=== PATIENT | male | born 1940 | race Caucasian/White ===

== ENCOUNTER 2016-09-13 14:16 | Inpatient (IN) | payer MEDICARE ==
[~2016-09-13] VITALS: Ht 180.3 cm; Wt 95.7 kg
[2016-09-13] MEDS ORDERED: SODIUM CHLORIDE 0.9% 1,000ML IVBOLUS ONE (15:00)
[2016-09-13 15:17] LABS: ASPARTATE AMINO TRANSFERASE 13 U/L (15-37); BLOOD UREA NITROGEN 23 mg/dL (7-18)
[2016-09-13 15:21] LABS: IS PT STATUS REG ER OR PRE ER? YES
[2016-09-13] MEDS ORDERED: SIMV20TA3 PO (17:43)
[2016-09-13] MEDS ORDERED: UBID200C4 PO (17:43)
[2016-09-13] MEDS ORDERED: LISI5TAB7 PO (17:43)
[2016-09-13] MEDS ORDERED: LIRA0.6P SQ (17:43)
[2016-09-13] MEDS ORDERED: CHOL20003 PO (17:43)
[2016-09-13] MEDS ORDERED: DAPA1TAB3 PO (17:43)
[2016-09-13] MEDS ORDERED: ASPI-496 PO (17:43)
[2016-09-13 18:51] VITALS: BP 136/79
[2016-09-13] MEDS ORDERED: ACETAMINOPHEN 325 MG TABLET PO PRN (19:00)
[2016-09-13] MEDS ORDERED: TEMAZEPAM 15 MG CAPSULE PO PRN (19:00)
[2016-09-13] MEDS ORDERED: HEPARIN 5,000 UNITS/ML, 1ML SQ SCH (19:00)
[2016-09-13 19:56] LABS: IS PT STATUS REG ER OR PRE ER? NO
[2016-09-13] MEDS ORDERED: SIMVASTATIN 20 MG TABLET PO SCH (21:00)
[2016-09-13] MEDS: SODIUM CHLORIDE 0.9% 1,000 ML IV SCH (21:37)
[2016-09-14 00:54] LABS: IS PT STATUS REG ER OR PRE ER? NO
[2016-09-14 01:14] VITALS: BP 143/70
[2016-09-14 05:08] VITALS: BP_SYST 136; BP_SYST 142; BP_SYST 152; BP_DIAS 76; BP_DIAS 77; BP_DIAS 80
[2016-09-14] MEDS: SODIUM CHLORIDE 0.9% 1,000 ML IV SCH (05:09)
[2016-09-14 06:46] LABS: BLOOD UREA NITROGEN 23 mg/dL (7-18)
[2016-09-14 08:00] VITALS: BP 130/80
[2016-09-14] MEDS ORDERED: UBIDECARENONE PO SCH (09:00)
[2016-09-14] MEDS ORDERED: ASPIRIN 81 MG TABLET EC PO SCH (09:00)
[2016-09-14] MEDS ORDERED: TEMPLATE NON-FORMULARY MED. (Liraglutide (Victoza 2-Pak) 1.8 MG) SQ SCH (09:00)
[2016-09-14] MEDS ORDERED: CHOLECALCIFEROL 8000 UNIT PO SCH (09:00)
[2016-09-14] MEDS ORDERED: METF10002 PO (12:27)
== END 2016-09-14 15:50 | disposition home or self-care (01) | DRG 73 ==
LOC: ED 17:24 → EDIP 17:25 → ED 17:32 → 5SO 18:38
PROVIDERS: ADMIT Internal Medicine; ATTEND Internal Medicine
DX: G90.8 Other disorders of autonomic nervous system (principal); N17.0 Acute kidney failure with tubular necrosis; F45.8 Other somatoform disorders; E86.0 Dehydration; D72.829 Elevated white blood cell count, unspecified; E11.9 Type 2 diabetes mellitus without complications; E78.5 Hyperlipidemia, unspecified; E86.1 Hypovolemia; H35.30 Unspecified macular degeneration; I10 Essential (primary) hypertension; I34.0 Nonrheumatic mitral (valve) insufficiency; I35.8 Other nonrheumatic aortic valve disorders; Z82.49 Family history of ischemic heart disease and other diseases of the circulatory system; H53.8 Other visual disturbances
CPT/HCPCS: 36415; 70450; 70551; 71010; 80048; 80053; 80061; 81001; 82962; 83036; 83735; 84100; 84439; 84443; 84484; 85025; 85379; 85610; 85730; 93005; 93306; 93880; 96360; J1644; J7030